=== PATIENT | male | born 1980 | race Caucasian/White ===

== ENCOUNTER 2016-09-14 19:19 | Inpatient (IN) | payer MEDICAID ==
[~2016-09-14] VITALS: Ht 190.5 cm; Wt 140.6 kg
[2016-09-14 20:15] LABS: Basophils # (auto) 0 uL; Basophils % (auto) 0.5 % (0.0-2.0); CONDITION Y; Eosinophils # (auto) 0 uL; Eosinophils % (auto) 0.6 % (0.0-7.0); Hematocrit 49.1 % (41.0-53.0); Hemoglobin 16.9 g/dL (13.5-17.5); Lymphocytes # (auto) 2.5 uL; Lymphocytes % (auto) 32.6 % (10.0-50.0); Mean Corpuscular Hemoglobin 29.8 pg (28.0-32.0); Mean Corpuscular Hgb Conc. 34.5 g/dL (32.0-36.0); Mean Corpuscular Volume 86.3 fL (80.0-100.0); Mean Platelet Volume 9.6 fL (7.4-10.4); Monocytes # (auto) 0.6 uL; Monocytes % (auto) 7.3 % (0.0-12.0); Neutrophils # (auto) 4.6 uL; Platelet Count (auto) 257 10^3/uL (140-450); Red Cell Distribution Width 13.9 % (11.6-16.0); White Blood Cell 7.8 10^3/uL (4.4-10.8)
[2016-09-14 20:31] LABS: Partial Thromboplastin Time 28.8 sec (22.64-33.71); Prothrombin Time 10.9 sec (9.37-12.3)
[2016-09-14 20:35] LABS: Albumin 4.1 g/dL (3.4-5.0); BUN/Creatinine Ratio 14.5; Calcium 8.3 mg/dL (8.5-10.1); Potassium 3.5 mmol/L (3.5-5.1)
[2016-09-14 20:37] LABS: Bilirubin, Total 0.9 mg/dL (0.2-1.0)
[2016-09-14 20:38] LABS: Total Protein 7.9 g/dL (6.4-8.2)
[2016-09-15] MEDS ORDERED: ACETAMINOPHEN 325 MG TAB PO PRN (03:45)
[2016-09-15] MEDS ORDERED: ATORVASTATIN 20 MG TAB PO ONE (03:45)
[2016-09-15] MEDS ORDERED: NITROGLYCERIN 0.4 MG SL TAB SL PRN (03:45)
[2016-09-15] MEDS ORDERED: ASPirin 81 mg TAB PO ONE (03:45)
[2016-09-15] MEDS ORDERED: TEMAZEPAM 15 MG CAP PO PRN (03:45)
[2016-09-15] MEDS ORDERED: HYDROcodone-ACET 5/325MG TAB PO PRN (03:45)
[2016-09-15] MEDS ORDERED: ONDANSETRON HCL 4 MG/2 ML VIAL IV PRN (03:45)
[2016-09-15] MEDS ORDERED: MORPHINE SULF INJ 2 MG/ML SYRINGE 1ML IV PRN (03:45)
[2016-09-15] MEDS: ENOXAPARIN SOD 40 MG/0.4 ML SYRINGE SC SCH ×2 (04:14→10:09)
[2016-09-15 04:45] LABS: Cholesterol 148 mg/dL (< 200); HDL Cholesterol 30 mg/dL (40-59); LDL Cholesterol 107 mg/dL (< 100); Triglycerides 82 mg/dL (< 150)
[2016-09-15 05:00] VITALS: BP 148/77
[2016-09-15 05:14] VITALS: BP 148/77
[2016-09-15 08:05] LABS: Urine Bilirubin Negative (Negative); Urine Blood Negative /uL (Negative); Urine Color Yellow (Yellow); Urine Glucose Normal (Normal); Urine Mucus FEW (None Seen); Urine Nitrite Negative (Negative); Urine RBC 1 /hpf (0 - 3); Urine Squamous Epithelial Cell FEW /hpf (<5)
[2016-09-15 08:17] LABS: Urine Ketone 4+ (Negative)
[2016-09-15 09:00] VITALS: BP 158/86
[2016-09-15] MEDS ORDERED: FAMOTIDINE 20 MG TAB PO SCH (10:00)
[2016-09-15] MEDS ORDERED: ASPirin 81 mg TAB PO SCH (10:00)
[2016-09-15 13:00] VITALS: BP 142/87
[2016-09-15 17:13] VITALS: BP 158/80
[2016-09-15] MEDS ORDERED: PRAMIPEXOLE DIHYDROCHLORIDE MO 0.25 MG TAB PO SCH (22:00)
[2016-09-15] MEDS ORDERED: ATORVASTATIN 20 MG TAB PO SCH (22:00)
== END 2016-09-15 22:29 | disposition left against medical advice (07) | DRG 861 ==
LOC: ER 19:31 → EDUNIT# 19:32 → TELE 19:32 → WEST WING 09-15 05:00 → TELE-WESTW 09-15 19:02
PROVIDERS: ADMIT Nurse Practitioner; ATTEND Internal Medicine
DX: R53.1 Weakness (principal); I15.9 Secondary hypertension, unspecified; G45.9 Transient cerebral ischemic attack, unspecified; F12.90 Cannabis use, unspecified, uncomplicated; E66.01 Morbid (severe) obesity due to excess calories; G25.81 Restless legs syndrome; F41.9 Anxiety disorder, unspecified; G47.00 Insomnia, unspecified; G43.109 Migraine with aura, not intractable, without status migrainosus; M47.9 Spondylosis, unspecified; Z79.82 Long term (current) use of aspirin; Z79.899 Other long term (current) drug therapy; Z82.49 Family history of ischemic heart disease and other diseases of the circulatory system; Z83.3 Family history of diabetes mellitus; Z82.0 Family history of epilepsy and other diseases of the nervous system; Z68.38 Body mass index [BMI] 38.0-38.9, adult
CPT/HCPCS: 36415; 70450; 71010; 72125; 80053; 80061; 80307; 81001; 82728; 83540; 83550; 85025; 85610; 85730; 93005; 93886